=== PATIENT | male | born 1960 | race Caucasian/White ===

== ENCOUNTER 2016-11-24 12:33 | Emergency (ER) | payer OTHER ==
[~2016-11-24] VITALS: Ht 175.3 cm; Wt 100.0 kg
[2016-11-24] MEDS ORDERED: ROPI2TAB PO (13:12)
[2016-11-24] MEDS ORDERED: HYZA100T6 PO (13:12)
[2016-11-24 15:49] LABS: BASO % 0.4 % (0.0-1.0); EOS # 0.3 K/mm3 (0.0-0.50); EOS % 2.8 % (0.0-3.0); LARGE UNSTAINED CELL # 0.1 K/mm3 (0.0-0.4); LARGE UNSTAINED CELL % 0.8 % (0.0-4.0); LYMPH # 1.7 K/mm3 (1.5-4.5); MEAN CORPUSCULAR HEMOGLOBIN 30.4 pg (27.0-33.0); MEAN CORPUSCULAR HGB CONC 33.8 g/dl (32.0-36.5); MEAN CORPUSCULAR VOLUME 89.8 fl (80.0-96.0); MONO # 0.6 K/mm3 (0.0-0.8); MONO % 5.5 % (0.0-5.0); NEUTROPHILS # 8.2 K/mm3 (1.8-7.7); NEUTROPHILS % 75.4 % (36.0-66.0); PLATELET COUNT, AUTOMATED 195 k/mm3 (150-450); RED CELL DISTRIBUTION WIDTH 12.9 % (11.5-14.5); WHITE BLOOD COUNT 10.8 K/mm3 (4.0-10.0)
[2016-11-24 16:15] LABS: ALBUMIN 4.1 GM/DL (3.2-5.2); ALBUMIN/GLOBULIN RATIO 1.28 (1.00-1.93); ALKALINE PHOSPHATASE 41 U/L (45-117); ALT/SGPT 59 U/L (12-78); AMYLASE 86 U/L (25-115); ANION GAP 8 MEQ/L (8-16); AST/SGOT 23 U/L (15-37); BILIRUBIN,DIRECT 0.2 MG/DL (0.0-0.2); BILIRUBIN,TOTAL 0.6 MG/DL (0.2-1.0); BLOOD UREA NITROGEN 17 MG/DL (7-18); CARBON DIOXIDE LEVEL 33 MEQ/L (21-32); CHLORIDE LEVEL 101 MEQ/L (98-107); CREATININE FOR GFR 1.11 MG/DL (0.70-1.30); GLOMERULAR FILTRATION RATE > 60.0 (>56); GLUCOSE, FASTING 101 MG/DL (70-105); POTASSIUM SERUM 3.5 MEQ/L (3.5-5.1); SODIUM LEVEL 142 MEQ/L (136-145); TOTAL PROTEIN 7.3 GM/DL (6.4-8.2)
[2016-11-24] MEDS ORDERED: ISOVUE-370 76% 100ML VIAL (Q9967) As Ordered ONE (16:33)
[2016-11-24 16:44] VITALS: BP 137/82
--- NOTE | 2016-11-24 16:58 | REP ---
CT abdomen pelvis with IV contrast but without bowel contrast: There are no comparisons. The visualized lung cook are unremarkable. The hepatic parenchyma straits decreased density compatible with hepato steatosis but is otherwise unremarkable. The gallbladder and spleen are normal size and unremarkable. There is mild mesenteric fat stranding adjacent to the pancreatic tail compatible with mild pancreatitis. No pseudocyst, ascites or pleural effusion. The adrenals and kidneys are unremarkable. The abdominal aorta is unremarkable. The bowel and mesentery are unremarkable. Pelvis: The appendix has a normal appearance. There is mild wall thickening of the sigmoid colon, nonspecific, artifact from under distension versus focal colitis. There is no ascites or adenopathy. The bladder is unremarkable. There are no diverticula. Impression: Focal sigmoid colon colitis versus artifact from under distension. Mild mesenteric fat stranding adjacent to the pancreatic tail, possibly pancreatitis. Hepato steatosis. Otherwise, negative CT of the abdomen pelvis. There is no ascites. No pleural effusions. Signed by Kenrick Hare MD 11/24/2016 04:49 P
[2016-11-24] MEDS ORDERED: CIPR-249 PO (17:12)
[2016-11-24] MEDS ORDERED: METR1TAB66 PO (17:12)
== END 2016-11-24 17:38 | disposition home or self-care (01) ==
LOC: M ED 12:33
DX: K85.90 Acute pancreatitis without necrosis or infection, unspecified (principal); K52.9 Noninfective gastroenteritis and colitis, unspecified; I10 Essential (primary) hypertension; E66.9 Obesity, unspecified; Z79.899 Other long term (current) drug therapy
CPT/HCPCS: 74177; 80048; 80076; 81001; 82150; 83690; 85025; 99283; Q9967

== ENCOUNTER → 2016-11-24 | Outpatient (REF) | payer OTHER ==
[~2016-11-24] MED LIST: CIPR-249 PO; HYZA100T6 PO; METR1TAB66 PO; ROPI2TAB PO
== END ==
LOC: M SFHCLERA 11:31
PROVIDERS: ATTEND Nurse Practitioner Family
DX: R10.9 Unspecified abdominal pain (principal)

== ENCOUNTER → 2023-04-10 | Outpatient (CLI) | payer OTHER ==
[~2023-04-10] MED LIST changes: -HYZA100T6 PO; +LOSA-536 PO; +METR-265 PO; -METR1TAB66 PO; -ROPI2TAB PO; +ROPI2TAB46 PO
== END ==
LOC: M WHC 11:51
PROVIDERS: ATTEND Internal Medicine Nephrology
DX: N18.31 Chronic kidney disease, stage 3a (principal); N28.1 Cyst of kidney, acquired

== ENCOUNTER → 2024-10-28 | Outpatient (CLI) | payer MEDICARE, OTHER | LOC: M WHC 10:21 | PROVIDERS: ATTEND Physician Assistant Medical | DX: R22.1 Localized swelling, mass and lump, neck (principal) ==

== ENCOUNTER → 2024-11-30 | Outpatient (CLI) | payer MEDICARE, OTHER ==
[~2024-11-30] MED LIST changes: +ISOVUE-370 76% 100 ML VIAL ONE
== END ==
LOC: M PLAIMG 13:27
PROVIDERS: ATTEND Physician Assistant Medical
DX: D17.0 Benign lipomatous neoplasm of skin and subcutaneous tissue of head, face and neck (principal); R90.82 White matter disease, unspecified
CPT/HCPCS: 70470; 70491; Q9967